=== PATIENT | male | born 1975 | race Asian ===

== ENCOUNTER 2020-03-24 19:18 | Emergency (ER) | payer BC ==
[~2020-03-24] VITALS: Ht 172.7 cm; Wt 75.9 kg
[2020-03-24 19:20] VITALS: TEMP 97.7
[2020-03-24] MEDS ORDERED: NORCO 325 MG-51 TAB PO (21:27)
[2020-03-24] MEDS ORDERED: CEPHALEXIN500 M1 PO (21:27)
[2020-03-24 22:11] VITALS: BP 119/87; PULSE 99
== END 2020-03-24 22:11 | disposition home or self-care (01) ==
LOC: COL.ER 19:18
DX: S92.421A Displaced fracture of distal phalanx of right great toe, initial encounter for closed fracture (principal); S91.211A Laceration without foreign body of right great toe with damage to nail, initial encounter; W22.8XXA Striking against or struck by other objects, initial encounter; Y92.009 Unspecified place in unspecified non-institutional (private) residence as the place of occurrence of the external cause